=== PATIENT | female | born 1990 | race Caucasian/White ===

== ENCOUNTER 2023-11-22 08:46 | Outpatient (CLI) | payer MEDICAID | END 2023-11-22 23:59 | disposition home or self-care (01) | LOC: RAD 08:46 | PROVIDERS: ATTEND Nurse Practitioner Obstetrics & Gynecology | DX: O09.93 Supervision of high risk pregnancy, unspecified, third trimester (principal); Z3A.32 32 weeks gestation of pregnancy | CPT/HCPCS: 76805 ==

== ENCOUNTER 2023-12-18 16:02 | Outpatient (CLI) | payer MEDICAID | END 2023-12-18 23:59 | disposition home or self-care (01) | LOC: RAD 16:02 | PROVIDERS: ATTEND Obstetrics & Gynecology | DX: O09.93 Supervision of high risk pregnancy, unspecified, third trimester (principal); Z3A.34 34 weeks gestation of pregnancy | CPT/HCPCS: 76805 ==